=== PATIENT | male | born 1995 | race Caucasian/White ===

== ENCOUNTER 2021-05-09 16:40 | Inpatient (IN) | payer OTHER ==
[~2021-05-09] VITALS: Ht 185 cm; Wt 126.0 kg
[2021-05-09 17:11] LABS: HEMATOCRIT 45 % (40-54); HEMOGLOBIN 15.2 g/dL (13.3-17.7); MEAN CORPUSCULAR HEMOGLOBIN 31 pg (25-34); MEAN CORPUSCULAR HGB CONC 34 g/dL (32-36); MEAN CORPUSCULAR VOLUME 91 fL (80-99); MEAN PLATELET VOLUME 9.3 fL (9.0-12.2); PLATELET COUNT 296 10^3/uL (130-400); WHITE BLOOD COUNT 13.6 10^3/uL (4.3-11.0)
[2021-05-09 17:30] LABS: ALBUMIN 4.7 GM/DL (3.2-4.5); BILIRUBIN,DIRECT 0.1 MG/DL (0.0-0.3); BILIRUBIN,INDIRECT 0.2 MG/DL; BILIRUBIN,TOTAL 0.3 MG/DL (0.1-1.0); CALCIUM 9.4 MG/DL (8.5-10.1); CREATININE SERUM 0.93 MG/DL (0.60-1.30); POTASSIUM 3.3 MMOL/L (3.6-5.0); TOTAL PROTEIN 7.8 GM/DL (6.4-8.2)
[2021-05-09] MEDS ORDERED: CATHETER FLUSH 10 ML SYR IV PRN (17:30)
[2021-05-09] MEDS ORDERED: IOHEXOL 350 MG/ML 100 ML (OMNIPAQUE 350) VIAL IV ONE (17:30)
[2021-05-09] MEDS ORDERED: NS 100 ML (IVPB) BAG IV ONE (17:30)
[2021-05-09] MEDS ORDERED: HOLD METFORMIN - RECEIVED CONTRAST 20 ML VIAL IV SCH (17:30)
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
[2021-05-09 19:18] LABS: BILIRUBIN,URINE NEGATIVE (NEGATIVE); CLARITY,URINE CLEAR; COLOR,URINE YELLOW; GLUCOSE, URINE (UA) NEGATIVE (NEGATIVE); KETONES,URINE NEGATIVE (NEGATIVE); LEUKOCYTE ESTERASE ,URINE NEGATIVE (NEGATIVE); NITRITE,URINE NEGATIVE (NEGATIVE); PROTEIN,URINE 1+ (NEGATIVE)
[2021-05-09 19:24] LABS: BACTERIA,URINE TRACE /HPF; RBC,URINE 0-2 /HPF; SQUAMOUS EPITHELIAL CELL,UR RARE /HPF; WBC,URINE 0-2 /HPF
[2021-05-09 19:28] LABS: AMPHETAMINE SCREEN, URINE NEGATIVE (NEGATIVE); BARBITURATE SCREEN URINE NEGATIVE (NEGATIVE); BENZODIAZEPINES SCREEN URINE NEGATIVE (NEGATIVE); CANNABINOID SCREEN, URINE NEGATIVE (NEGATIVE); COCAINE SCREEN URINE NEGATIVE (NEGATIVE); METHADONE STAT NEGATIVE (NEGATIVE); METHAMPHETAMINE SCREEN URINE S NEGATIVE (NEGATIVE); OPIATE SCREEN URINE NEGATIVE (NEGATIVE); OXYCODONE STAT NEGATIVE (NEGATIVE); PROPOXYPHENE STAT NEGATIVE (NEGATIVE); TRICYCLIC ANTIDEPRESSANTS SCRE NEGATIVE (NEGATIVE)
[2021-05-09] MEDS ORDERED: TETANUS,DIPTH,PERTUSS P/F (BOOSTRIX) 0.5 ML VIAL IM ONE (19:30)
[2021-05-09] MEDS ORDERED: morphine INJ 10 MG/ML 1ML (SYR OR VIAL) IVP STA (19:37)
[2021-05-09] MEDS ORDERED: FLUORESCEIN (FLUOR-I-STRIPS) 1 MG STRP OU ONE ×2 (19:45)
[2021-05-09] MEDS ORDERED: TETRACAINE 0.5% OPHTH SOLN 4 ML BTL (SINGLE DOSE ONLY) OU ONE (19:45)
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
[2021-05-09] MEDS: LACTATED RINGERS 1,000 ML IV SCH (22:45)
[2021-05-09] MEDS ORDERED: ONDANSETRON 4 MG/2 ML (SDV) Z0FRAN IV PRN (22:45)
[2021-05-09] MEDS: oxyCODONE/APAP 5/325MG (PERCOCET 5) TABLET PO PRN (22:45)
--- OUTSIDE RECORDS SUMMARY | 2021-05-09 23:49 | XMS REPORT ---
Author Author [facility] Address Unknown Phone Unavailable Care Team Providers Care Supervisor Of Guidance And Testing Name Role Phone Migration, Doctor Unavailable Unavailable PROBLEMS Type Condition ICD9-CM Code TPV48-DH Code Onset Dates Condition S tatus W/U Status Risk SNOMED Code Notes Problem DTAP TEST V06.1 Active TDAP D X Problem STATE HEP A (ADULT) DX V05.3 Active [id number] HEP A (PED/ADOL 2- DOSE) DX Problem Generalized anxiety disorder F41.1 Active confirme d [id number] Problem Major depressive disorder, recurrent, moderate F33 .1 Active confirmed 32438311 Problem GARDASIL (HPV) DX V04.89 Active GARDASIL (HPV) DX Problem MENINGOCOCCAL DX V03.89 Active 904968 06 MENINGOCOCCAL DX Problem Contact or exposure to other communicable diseases V01.89 Active 153123856 CONTACT WITH OR EXPOSURE TO OTHER COMMUNICABLE DISEASES Problem Generalized anxiety disorder F41.1 Active confirme d [id number] ALLERGIES No Information ENCOUNTERS from 1995 to 2021-03-12 Encounter Location Date Provider Diagnosis [facility] [address] [facility] [facility] [id number] [place] [address] Dec, Doctor Migration IMMUNIZATIONS Vaccine Route Administration Date Status PRIVATE VARICELLA Unknown February 10, 2014 Pending PRIVATE VARICELLA Unknown Apr 23, 2001 Pending GARDASIL (HPV-3 DOSE) Unknown May 30, 2014 Pending GARDASIL (HPV-3 DOSE) Unknown February 10, 2014 Pending PRIVATE MMR Unknown Apr 23, 2001 Pending PRIVATE MMR Unknown March 30, 1997 Pending PRIVATE HEP A (PEDS/ADOLESCENT-2 DOSE) Unknown February 10 014 Pending PRIVATE HEP B (PEDS/ADOLESCENT, 3-DOSE) Unknown December Pending PRIVATE TDAP (ADACEL) Unknown February 10, 2014 Pending PRIVATE HEP B (PEDS/ADOLESCENT, 3-DOSE) Unknown 1995 Pending PRIVATE MENINGOCOCCAL (MENACTRA) Unknown February 10, 2014 Pending PRIVATE HEP B (PEDS/ADOLESCENT, 3-DOSE) Unknown 1995 Pending SOCIAL HISTORY Sex Assigned At : Social History Observation Description Sex Assigned At Unknown REASON FOR REFERRAL No Information VITAL SIGNS No information MEDICATIONS Medication SIG (Take, Route, Frequency, Duration) Notes Start Da te End Date Status Azithromycin 250 mg take 2 Tablet by Oral route on day 1 then take 1 daily for 4 days [facility] January, Not-Taking PROCEDURES No Information RESULTS No Results REASON FOR VISIT [facility] Goals Section No Information Health Concerns No Information MEDICAL EQUIPMENT No Information MENTAL STATUS No Information FUNCTIONAL STATUS No Information ASSESSMENTS No Information PLAN OF TREATMENT No Information Insurance Providers Payer Name Payer Address Payer Phone Insured Name Patient Relati onship to Insured Coverage Start Date Coverage End Date [employer] [address] [address] [facility] [phone] Danis Davalos
[2021-05-10] VITALS (16 sets, daily range): BP systolic 125–168; BP diastolic 72–99
[2021-05-10] MEDS: TOBRA/DEXAMETH (TOBRADEX) OPHTH SUSP 2.5 ML BTL OS SCH ×5 (00:41→20:36)
[2021-05-10] MEDS: morphine INJ 4 MG/ML 1 ML (VIAL/SYRINGE) IVP PRN ×3 (02:23→23:50)
[2021-05-10] MEDS: LACTATED RINGERS 1,000 ML IV SCH ×3 (06:50→18:57)
[2021-05-10] MEDS ORDERED: fentaNYL INJ 100 MCG/2 ML AMP ONE (07:51)
[2021-05-10] MEDS ORDERED: ROCURONIUM 10 MG/ML 5 ML SYRINGE IV ONE (07:51)
[2021-05-10] MEDS ORDERED: GLYCOPYRROLATE 0.2 MG/ML (ROBINUL) 2 ML VIAL ONE (07:51)
[2021-05-10] MEDS ORDERED: LIDOCAINE PF 2% 5 ML (XYLOCAINE) VIAL ONE (07:51)
[2021-05-10] MEDS ORDERED: NEOSTIGMINE 3 MG/3 ML VIAL ONE (07:51)
[2021-05-10] MEDS ORDERED: ONDANSETRON 4 MG/2 ML (SDV) Z0FRAN ONE ×2 (07:51→11:07)
[2021-05-10] MEDS ORDERED: proPOfol 200 MG/20 ML (DIPRIVAN) VIAL IV ONE (07:51)
[2021-05-10] MEDS ORDERED: MIDAZOLAM 2 MG/2 ML (VERSED) VIAL ONE (07:51)
[2021-05-10] MEDS ORDERED: HYDROmorphone 2 MG/ML VIAL (DILAUDID) IV ONE (08:15)
[2021-05-10] MEDS ORDERED: morphine INJ 10 MG/ML 1ML (SYR OR VIAL) IVP ONE (08:15)
[2021-05-10] MEDS ORDERED: ONDANSETRON 4 MG/2 ML (SDV) Z0FRAN IVP PRN (08:15)
[2021-05-10] MEDS: LACTATED RINGERS 1,000 ML IV PRN ×2 (08:23→09:15)
[2021-05-10] MEDS ORDERED: ceFAZolin INJECTION 2,000 MG ONE (08:49)
[2021-05-10] MEDS ORDERED: HYDROmorphone 2 MG/ML VIAL (DILAUDID) ONE (08:54)
[2021-05-10] MEDS ORDERED: BUPIVACAINE 0.5% 30 ML (SENSORCAINE) VIAL ONE (10:00)
[2021-05-10] MEDS ORDERED: NEO/POLY/BAC (NEOSPORIN) OINT 15 GM TUBE ONE (10:15)
[2021-05-10] MEDS ORDERED: SEVOFLURANE (ULTANE) 15 ML INHAL SOLN ONE (10:31)
[2021-05-10] MEDS ORDERED: morphine INJ 10 MG/ML 1ML (SYR OR VIAL) ONE (11:07)
--- NOTE | 2021-05-10 11:18 | Operative Report - Ortho ---
Operative Report Surgeon (s)/Sourcing Manager (s) Surgeon MARLON MILES MD Sourcing Manager n/a Pre-Operative Diagnosis Closed fracture left tibial shaft Post-Operative Diagnosis same Operative Report Date of Procedure: May 10, 2021 Name of Procedure Performed: Closed IM rodding left tibial shaft fractureHe is in a 360 mm x 11 mm tibial rox with proximal and distal locking screws x2In a neutral and Description & Findings The patient was seen with his family in the preoperative area. He had no questions or concerns. He had normal sensation to his foot and toes with good capillary refill and was able to move his foot and toes without any increase in pain. He was then taken to the operating room and placed on the OR table. After administration of general anesthesia Turck was placed on the left thigh. The splint was removed and again abrasions were noted mainly around the anterior aspect of the knee. Patient had some mild swelling but his compartments were all soft x4. He was given 2 g Ancef IV. His left leg and foot were then prepped and draped in usual sterile manner after scrubbing the abrasions. Tourniquet was not inflated. The knee was flexed to 90 degrees and an incision was made over the medial aspect of the patella tendon. This was between the abrasions where there was normal skin bridge approximately 3.0 Centimeters in width. Again the abrasions were superficial.Bleeders are cauterized. At this point a guidewire was placed over the anterior aspect of the knee and with image the entry point was determined in line with the central aspect of the canal. This was basically in the midportion of the patella tendon. This point the patella tendon was split and retracted withRetractors. The anterior edge of the tibia was identified and a guidepin was placed and checked and found to be in line with the central aspect of the shaft. A lateral view was obtained in the guidewire was advanced into the canal. This was then overreamed with the opening reamer or drill. Guidewire was removed and replaced with a long beaded guidewire to the fracture site. The fracture was then reduced and advanced to the ankle joint. This was measured and measured 330 mm. This was then remeasured and checked and a 330 Millimeter by 11 mm rox was selected. The tibia was reamed up to 12 mm. Again through the fracture site with the fracture reduced. The rox was then inserted and found to be short so this was removed and a guidewire was remeasured and a 360 mm x 11 mm millimeter rox was then selected and inserted.Again the fracture was reduced and excellent alignment of the fracture was noted. At this point 2 locking screws were placed in the static holes proximallyAfter drilling measured and is inserting appropriate leg screws.These were checked with image and found to be good length. Next 2 locking screws were placed distally and freehand drilled measured and inserting appropriate length screws. This point the entire tibia was evaluated and then the fracture was anatomically reduced. Screws were in good position as well as the rox. A neutral endcap was inserted. At this point the wounds were irr igated with normal saline. The patella tendon was reapproximated with 0 Vicryl in the peritenon with 2-0 Vicryl. Subcutaneous tissue with 2-0 Vicryl in the remaining wounds and then the skin was closed with shan. Wounds were dressed with antibiotic ointment Adaptic and 4 x 4's with an ABD anterior knee these were then wrapped with Lico wraps from the toes to the knee. The patient had good cap refill and equal pulses. At this point Dr. HoffPlaced in adductor canal block. Patient was then transferred to recovery in good condition he tolerated the procedure well. In the recovery room the patient could move his toes and had no pain with toe motion or with dorsiflexion plantarflexion of the foot. Estimated blood loss 75 mL Replacementnone Drainsnone Complicationsnone n/a Anesthesia Type General Estimated Blood Loss 75 mL Packing none. Specimen(s) collected/removed None MARLON MILES MD May 10, 2021 11:18
--- NOTE | 2021-05-10 11:34 | Diagnostic Imaging Report ---
INDICATION: ORIF of the left tibia fracture. IMPRESSION: 127 seconds of fluoroscopy was used for ORIF of the left tibia. Nine images were obtained which shows intramedullary rox present. There is anatomic alignment. Dictated by: Dictated on workstation # [id number]
[2021-05-10] MEDS: oxyCODONE/APAP 5/325MG (PERCOCET 5) TABLET PO PRN ×3 (12:12→21:05)
[2021-05-10] MEDS: ceFAZolin 2 GM IV Premixed 50 ML IV SCH ×2 (13:31→20:35)
[2021-05-10 13:57] LABS: BASOPHILS % (AUTO) 0 % (0-10); EOSINOPHILS % (AUTO) 0 % (0-10); HEMATOCRIT 36 % (40-54); HEMOGLOBIN 12.3 g/dL (13.3-17.7); LYMPHOCYTES # (AUTO) 0.4 10^3/uL (1.0-4.0); LYMPHOCYTES % (AUTO) 5 % (12-44); MEAN CORPUSCULAR HEMOGLOBIN 31 pg (25-34); MEAN CORPUSCULAR HGB CONC 34 g/dL (32-36); MEAN CORPUSCULAR VOLUME 91 fL (80-99); MONOCYTES # (AUTO) 0.4 10^3/uL (0.0-1.0); MONOCYTES % (AUTO) 6 % (0-12); NEUTROPHILS # (AUTO) 7.1 10^3/uL (1.8-7.8); NEUTROPHILS % (AUTO) 89 % (42-75); PLATELET COUNT 231 10^3/uL (130-400)
[2021-05-10 14:13] LABS: BAND NEUTROPHILS 5 %; LYMPHOCYTES % (MANUAL) 6 %; MONOCYTES % (MANUAL) 1 %; NEUTROPHILS % (MANUAL) 88 %; RBC MORPH NORMAL
[2021-05-10 14:16] LABS: ALBUMIN 4.2 GM/DL (3.2-4.5); CALCIUM 9.3 MG/DL (8.5-10.1); CREATININE SERUM 0.98 MG/DL (0.60-1.30); POTASSIUM 4.1 MMOL/L (3.6-5.0); TOTAL PROTEIN 7.2 GM/DL (6.4-8.2)
[2021-05-10] MEDS ORDERED: ACET-2267 PO (14:24)
[2021-05-10] MEDS ORDERED: ESCI20TA39 PO (14:24)
[2021-05-10] MEDS ORDERED: LISI-729 PO (14:24)
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
--- NOTE | 2021-05-10 16:18 | Progress Note - Ortho ---
Progress Note Subjective Date of Exam 05/10/21 Chief Complaint Postop closed IM rox left tibia HPI/Events since last exam Injury was sleeping when I came in this afternoon. He is about 5 hours postop closed IM rodding of his left tibia. He states he is comfortable lying with his foot and lower leg elevated. I asked him if he has been taking much medication and he is dates he really has been asking for anything does remember the last time he did. Review of Systems No changes Allergies: Coded Allergies: No Known Drug Allergies (Unverified , 05/09/21) Home Meds Reported Medications Acetaminophen (Tylenol Extra Strength) 500 Mg Tablet, 1000 MG PO Q8H PRN for PAIN-MILD (1-4), TAB 05/10/21 Escitalopram Oxalate (Escitalopram Oxalate) 20 Mg Tablet, 20 MG PO 1999, TAB 05/10/21 Lisinopril (Lisinopril) 5 Mg Tablet, 5 MG PO 1999, TAB 05/10/21 Objective Exam Constitutional: [] HEENT: [] Neck: [] Cardiovascular: [] Respiratory: [] Gastrointestinal: [] Genitourinary: [] Skin: [] Back/Spine: [] Extremities: [He can move his toes and has normal sensation with good cap refill. His toes are pink. He can flex and extend his toes without pain. He can actually actively dorsiflex and plantarflex the foot and ankle with just some slight increased pain and with passive dorsiflexion plantarflexion he just has some slight increased pain but nothing significant. His compartments are still soft although there is some mild swelling in the calf region.Dressings are intact.] Neurologic: [] Psychiatric: [] Hematologic/lymphatic/immunologic: [] Vital Signs Vital Signs Date Time Temp Pulse Resp B/P (MAP) Pulse Ox O2 Delivery O2 Flow Rate FiO2 05/10/21 14:32 Room Air 05/10/21 12:51 78 18 149/91 (110) 92 Room Air 05/10/21 11:31 36.7 83 18 163/94 (117) 92 Room Air 05/10/21 11:30 Room Air 05/10/21 11:30 Room Air 05/10/21 11:30 36.4 16 155/90 (111) 92 Room Air 05/10/21 11:20 14 156/90 (112) 94 Room Air 05/10/21 11:15 Room Air 05/10/21 11:10 16 167/96 (119) 96 Room Air 05/10/21 11:00 Nasal Cannula 2 05/10/21 11:00 16 168/99 (122) 99 Nasal Cannula 2 05/10/21 10:50 16 148/87 (107) 100 T Piece 10 05/10/21 10:45 T Piece 10 05/10/21 10:40 18 135/85 (102) 100 T Piece 10 05/10/21 10:40 T Piece 10 05/10/21 10:33 36.6 20 134/78 (96) 100 T Piece 10 05/10/21 10:33 T Piece 10 05/10/21 07:40 37.4 88 18 152/82 (105) 97 Room Air 05/10/21 04:00 36.4 80 17 145/82 (103) 93 Room Air 05/10/21 00:00 37.2 90 16 125/72 (89) 96 Room Air 05/09/21 21:20 Room Air 05/09/21 20:43 96 20 142/84 98 Room Air 05/09/21 16:40 36.6 126 21 149/88 (108) 96 Room Air l I & O 05/10/21 07:00 Intake Total 1000 ml Output Total 200 ml Balance 800 ml Lab Results Laboratory Tests 05/09/21 17:02: White Blood Count 13.6H, Red Blood Count 4.96, Hemoglobin 15.2, Hematocrit 45, Mean Corpuscular Volume 91, Mean Corpuscular Hemoglobin 31, Mean Corpuscular Hemoglobin Concent 34, Red Cell Distribution Width 12.3, Platelet Count 296, Mean Platelet Volume 9.3, Sodium Level 142, Potassium Level 3.3L, Chloride Level 108H, Carbon Dioxide Level 20L, Anion Gap 14, Blood Urea Nitrogen 15, Creatinine 0.93, Estimat Glomerular Filtration Rate 99, BUN/Creatinine Ratio 16, Glucose Level 101, Calcium Level 9.4, Total Bilirubin 0.3, Direct Bilirubin 0.1, Indirect Bilirubin 0.2, Aspartate Amino Transf (AST/SGOT) 33, Alanine Aminotransferase (ALT/SGPT) 42, Alkaline Phosphatase 50, Total Protein 7.8, Albumin 4.7H, Serum Alcohol 271H 05/09/21 19:05: Urine Color YELLOW, Urine Clarity CLEAR, Urine pH 5.0, Urine Specific [place] <=1.005, Urine Protein 1+H, Urine Glucose (UA) NEGATIVE, Urine Ketones NEGATIVE, Urine Nitrite NEGATIVE, Urine Bilirubin NEGATIVE, Urine Urobilinogen 0.2, Urine Leukocyte Esterase NEGATIVE, Urine RBC (Auto) 3+H, Urine RBC 0-2, Urine WBC 0- 2, Urine Squamous Epithelial Cells RARE, Urine Crystals NONE, Urine Bacteria TRACE, Urine Casts NONE, Urine Mucus NEGATIVE, Urine Culture Indicated NO, Urine Opiates Screen NEGATIVE, Urine Oxycodone Screen NEGATIVE, Urine Methadone Screen NEGATIVE, Urine Propoxyphene Screen NEGATIVE, Urine Barbiturates Screen NEGATIVE, Ur Tricyclic Antidepressants Screen NEGATIVE, Urine Phencyclidine Screen NEGATIVE, Urine Amphetamines Screen NEGATIVE, Urine Methamphetamines Screen NEGATIVE, Urine Benzodiazepines Screen NEGATIVE, Urine Cocaine Screen NEGATIVE, Urine Cannabinoids Screen NEGATIVE 05/10/21 13:50: White Blood Count 8.0, Red Blood Count 3.99L, Hemoglobin 12.3L, Hematocrit 36L, Mean Corpuscular Volume 91, Mean Corpuscular Hemoglobin 31, Mean Corpuscular Hemoglobin Concent 34, Red Cell Distribution Width 12.4, Platelet Count 231, Mean Platelet Volume 9.0, Sodium Level 133L, Potassium Level 4.1, Chloride Level 99, Carbon Dioxide Level 24, Anion Gap 10, Blood Urea Nitrogen 10, Creatinine 0.98, Estimat Glomerular Filtration Rate 93, BUN/Creatinine Ratio 10, Glucose Level 184H, Calcium Level 9.3, Total Bilirubin 1.0, Aspartate Amino Transf (AST/SGOT) 47H, Alanine Aminotransferase (ALT/SGPT) 36, Alkaline Phosphatase 49, Total Protein 7.2, Albumin 4.2, Immature Granulocyte % (Auto) 0, Neutrophils (%) (Auto) 89H, Lymphocytes (%) (Auto) 5L, Monocytes (%) (Auto) 6, Eosinophils (%) (Auto) 0, Basophils (%) (Auto) 0, Neutrophils # (Auto) 7.1, Lymphocytes # (Auto) 0.4L, Monocytes # (Auto) 0.4, Eosinophils # (Auto) 0.0, Basophils # (Auto) 0.0, Immature Granulocyte # (Auto) 0.0, Neutrophils % (Manual) 88, Lymphocytes % (Manual) 6, Monocytes % (Manual) 1, Band Neutrophils 5, Blood Morphology Comment NORMAL, Corrected Calcium 9.1 Assessment and Plan Assessment Doing well postop. Pain controlled Problem List Unchanged Plan Continue elevation. He actually stood up using a walker with the help of the nurses but therapy will start working with him tomorrow with crutches or walker ambulation partial weightbearing on the left although I do not think he only put much weight on his left leg initially Final Diagonsis Closed fracture left tibial shaft status post closed IM rodding Level of the visit: Level 3 MARLON MILES MD May 10, 2021 16:18
[2021-05-10] MEDS ORDERED: lisINopril 5 MG (PRINIVIL) TABLET PO SCH (20:00)
[2021-05-10] MEDS ORDERED: NON-FORMULARY MEDICATION 1 EA EA (Escitalopram Oxalate 20 MG) PO SCH (20:00)
[2021-05-11] MEDS: oxyCODONE/APAP 5/325MG (PERCOCET 5) TABLET PO PRN ×3 (01:04→16:04)
[2021-05-11 03:38] VITALS: BP 151/77
[2021-05-11 05:45] LABS: HEMOGLOBIN 10.7 g/dL (13.3-17.7)
[2021-05-11] MEDS: ceFAZolin 2 GM IV Premixed 50 ML IV SCH (06:45)
[2021-05-11 07:42] VITALS: BP 143/90
[2021-05-11] MEDS: LACTATED RINGERS 1,000 ML IV SCH (08:19)
[2021-05-11] MEDS: TOBRA/DEXAMETH (TOBRADEX) OPHTH SUSP 2.5 ML BTL OS SCH ×3 (08:19→17:21)
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
[2021-05-11] MEDS ORDERED: ASPIRIN 325 MG (5 GR) TABLET PO SCH (09:00)
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
--- NOTE | 2021-05-11 10:35 | Anesthesia-General Post-Op ---
General Patient Condition Mental Status/LOC: Same as Preop Cardiovascular: Satisfactory Nausea/Vomiting: Absent Respiratory: Satisfactory Pain: Controlled Complications: Absent Post Op Complications Complications None Follow Up Care/Instructions Patient Instructions None needed. Anesthesia/Patient Condition Patient Condition Patient is doing well, no complaints, stable vital signs, no apparent adverse anesthesia problems. No complications reported per nursing. DELMY TIERNEY CRNA May 11, 2021 10:35
[2021-05-11 11:27] VITALS: BP 144/78
[2021-05-11 15:38] VITALS: BP 136/64
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
[2021-05-11 17:09] VITALS: BP 136/64
== END 2021-05-11 17:14 | disposition home or self-care (01) | DRG 494 ==
LOC: ER 16:51 → 4TH 19:40
PROVIDERS: ADMIT Orthopaedic Surgery; ATTEND Orthopaedic Surgery
PROC: 0QSH34Z Reposition Left Tibia with Internal Fixation Device, Percutaneous Approach (ICD-10-PCS; principal; 2021-05-10 08:23)
DX: S82.232A Displaced oblique fracture of shaft of left tibia, initial encounter for closed fracture (principal); S82.432A Displaced oblique fracture of shaft of left fibula, initial encounter for closed fracture; S05.02XA Injury of conjunctiva and corneal abrasion without foreign body, left eye, initial encounter; I10 Essential (primary) hypertension; F41.9 Anxiety disorder, unspecified; F10.920 Alcohol use, unspecified with intoxication, uncomplicated; E66.9 Obesity, unspecified; Z68.36 Body mass index [BMI] 36.0-36.9, adult
CPT/HCPCS: 36415; 70450; 71045; 71260; 72125; 73590; 73630; 74177; 76000; 80048; 80053; 80076; 80306; 80320; 81000; 85007; 85014; 85018; 85027; 87081; 90715; 93041; 94664

== ENCOUNTER → 2021-05-16 | Outpatient (CLI) | payer OTHER ==
[~2021-05-16] MED LIST: ACET-2267 PO; ESCI20TA39 PO; LISI-729 PO
== END ==
LOC: ORTHO 10:49
PROVIDERS: ATTEND Orthopaedic Surgery
DX: S82.202A Unspecified fracture of shaft of left tibia, initial encounter for closed fracture (principal); X58.XXXA Exposure to other specified factors, initial encounter

== ENCOUNTER → 2021-05-23 | Outpatient (CLI) | payer OTHER ==
--- NOTE | 2021-05-23 09:18 | Diagnostic Imaging Report ---
INDICATION: Left tibial fracture fixation follow-up AP and lateral views of the left tibia and fibula show an intramedullary rox across the fracture of the distal shaft of the tibia which is in anatomic alignment. There is an oblique fracture of the proximal fibula which is in satisfactory alignment. IMPRESSION: Satisfactory postoperative left tibia and fibula. Dictated by: Dictated on workstation # [id number]
== END ==
LOC: ORTHO 08:50
PROVIDERS: ATTEND Orthopaedic Surgery
DX: S82.232D Displaced oblique fracture of shaft of left tibia, subsequent encounter for closed fracture with routine healing (principal); X58.XXXD Exposure to other specified factors, subsequent encounter
CPT/HCPCS: 73590

== ENCOUNTER → 2021-06-06 | Outpatient (CLI) | payer OTHER ==
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
== END ==
LOC: ORTHO 09:35
PROVIDERS: ATTEND Orthopaedic Surgery
DX: S82.232D Displaced oblique fracture of shaft of left tibia, subsequent encounter for closed fracture with routine healing (principal); S82.402D Unspecified fracture of shaft of left fibula, subsequent encounter for closed fracture with routine healing
CPT/HCPCS: 73590

== ENCOUNTER → 2021-06-25 | Outpatient (CLI) | payer OTHER ==
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
== END ==
LOC: ORTHO 09:32
PROVIDERS: ATTEND Orthopaedic Surgery
DX: S82.232D Displaced oblique fracture of shaft of left tibia, subsequent encounter for closed fracture with routine healing (principal); V89.2XXD Person injured in unspecified motor-vehicle accident, traffic, subsequent encounter
CPT/HCPCS: 73590

== ENCOUNTER → 2021-07-25 | Outpatient (CLI) | payer OTHER ==
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
== END ==
LOC: ORTHO 09:32
PROVIDERS: ATTEND Orthopaedic Surgery
DX: S82.232D Displaced oblique fracture of shaft of left tibia, subsequent encounter for closed fracture with routine healing (principal); Z98.890 Other specified postprocedural states
CPT/HCPCS: 73590